=== PATIENT | female | born 1930 | race Caucasian/White ===

== ENCOUNTER 2017-10-29 19:37 | Inpatient (IN) | payer OTHER ==
[~2017-10-29] VITALS: Ht 165.1 cm; Wt 69.4 kg
[~2017-10-29 19:37] MED LIST: ASPIRIN EC81 M1 PO; CELEBREX; COLACE 100 MG100 MG PO; CRESTOR5 MG PO; DIFLUCAN PO; DIFLUCAN150 MG PO; ESTRACE0.5 MG; FLONASE; HYDROCODON-ACE1 EAC1; HYDROXYZINE HCL10 M1 PO; K-DUR 20 MEQ T20 MEQ PO; LAMISIL250 MG; LEXAPRO 10 MG T10 MG PO; MACROBID 100 M100 M1 PO; MINIPRIN81 MG; MOBIC15 MG PO; NEOSPORIN OINTM15 GM TP; NORCO 7.5-3251 EACH PO; PERCOCET 5-3251 EACH PO; PREMARIN0.3 MG PO; RESTORIL30 MG PO; TOPICORT 0.25%15 G1; ULTRAM 50MG TAB50 MG PO; VENLAFAXIN37.5 MG/1 PO; ZPAK PO
[2017-10-29 19:38] VITALS: BP 144/77
[2017-10-29 19:42] VITALS: BP 122/76
[2017-10-29 20:23] LABS: HEMOGLOBIN 12.4 gm/dL (12.0-15.0); MCH 30.2 pg (26.0-34.0); MCHC 32.7 g/dL (28.0-37.0); MCV 92.3 fL (80.0-100.0); MPV 8.9 fl. (7.2-11.1); NUCLEATED RBCS 0 /100WBC; PLATELET COUNT* 252 thou/uL (150-400); RBC 4.11 mil/uL (4.20-5.00); RDW-CV 13.3 % (10.5-14.5); WBC 11.3 thou/uL (4.0-11.0)
[2017-10-29 20:30] LABS: CREATININE 1.3 mg/dL (0.6-1.3); POTASSIUM 3.9 mmol/L (3.5-5.1)
[2017-10-29 20:38] LABS: ALBUMIN 3.6 g/dL (3.4-5.0); TOTAL BILIRUBIN 0.5 mg/dL (<0.1-1.0); TOTAL PROTEIN 7.4 g/dL (6.4-8.2); TROPONIN-I LEVEL 0.08 ng/mL (<0.06)
[2017-10-29 20:49] LABS: ABSOLUTE BASOPHILS 0.1 thou/uL (0.0-0.2); ABSOLUTE LYMPHOCYTES 1.1 thou/uL (0.8-5.3); ABSOLUTE MONOCYTES 0.1 thou/uL (0.0-1.2); ABSOLUTE NEUTROPHILS 9.9 thou/uL (1.6-8.1)
[2017-10-29 20:51] LABS: PLATELET ESTIMATE ADEQUATE
--- NOTE | 2017-10-29 21:23 | NUR ---
SON ARRIVED AT BEDSIDE MARISELA TILLMAN [phone] STATES SHE HAS A DO NOT RESECUTATE ORDER. NOTEED DOCUMENT DID ARRRIVE IN DOCUMENTS SENT BY SNF. ALSO SON IN LAW ARRIVED CARA BALES [phone]
[2017-10-29 21:59] LABS: URINE BILIRUBIN NEGATIVE (Negative); URINE BLOOD NEGATIVE (Negative); URINE CLARITY CLEAR; URINE COLOR YELLOW; URINE GLUCOSE-RANDOM NEGATIVE (Negative); URINE KETONES NEGATIVE (Negative); URINE LEUKOCYTES-REFLEX NEGATIVE (Negative); URINE NITRITE-REFLEX NEGATIVE (Negative); URINE PROTEIN NEGATIVE (Negative); URINE UROBILINOGEN 0.2 E.U./dl (0.2-1.0)
--- NOTE | 2017-10-29 22:00 | NUR ---
PER DR STEVENS PATIENT TO HAVE STRAIGHT CATHETER FOR URINE SPECIMAN.
--- NOTE | 2017-10-29 22:58 | NUR ---
CALLED TO MRI, [employer] REPOR[employer] PATIENT AGITATED ON MRI TABLE AND NOT ABLE TO LIE STILL. DR STEVENS NOTIFIED AND ORDERD ADDITIONAL ATIVAN. THIS RN ARRIVED AND GAVE ADDITIONAL ATIVAN TO PATIENT X 2. THIS RN STAYED WITH PATIENT IN MRI. PATIENT MAINTAINED ON MONITOR SAO2 MAINTAINED 99 % DURING PROCEDUREPATIENT RETURNED TO ED ROOM 18.
[2017-10-30] MEDS ORDERED: PLAVIX 75 MG TA75 M1 PO (00:17)
[2017-10-30] MEDS ORDERED: TOPROL XL25 MG PO (00:17)
[2017-10-30] MEDS ORDERED: KLOR-CON 1010 MEQ PO (00:18)
[2017-10-30] MEDS ORDERED: DIOVAN40 MG PO (00:19)
[2017-10-30] MEDS ORDERED: VITAMIN D400 UNIT PO (00:21)
[2017-10-30] MEDS ORDERED: TUMS PO (00:22)
[2017-10-30] MEDS ORDERED: ACETAMINOPHEN500 M1 PO (00:23)
[2017-10-30] MEDS ORDERED: LAXATIVE SUPPOS10 MG RECTAL (00:24)
[2017-10-30] MEDS ORDERED: DAIRY AID3000 UNIT PO (00:25)
[2017-10-30] MEDS ORDERED: NITROGLYCERIN0.4 MG SUBLING (00:26)
[2017-10-30] MEDS ORDERED: MILK OF MA2400 MG/10 PO (00:26)
[2017-10-30] MEDS ORDERED: TRIAMCINOLONE A80 G2 TOP (00:27)
[2017-10-30] MEDS ORDERED: VOLTAREN GEL 1100 G2 TOP (00:28)
[2017-10-30] MEDS ORDERED: PAXIL10 MG PO (00:28)
[2017-10-30 03:48] LABS: BE -0.8 mmol/L (-2 to +3); HCO3 22.7 mmol/L (22.0-26.0); PCO2 34.1 mmHg (35.0-45.0); pH 7.442 (7.340-7.450)
[2017-10-30 03:52] LABS: PO2 150.8 mmHg (75.0-100.0)
[2017-10-30 04:22] VITALS: BP 136/76
[2017-10-30 05:00] VITALS: BP 155/63
--- NOTE | 2017-10-30 05:00 | NUR ---
PT LETHARGIC AND RESTLESS IN BED. UNABLE TO RESPOND TO QUESTIONS, ADMISSION OBTAINED FROM [facility] DOCUMENTATION. PT ABLE TO MOVE ALL EXTREMITIES. NO VERBAL RESPONSE WHEN SPOKEN TOO, UNABLE TO FOLLOW COMMANDS. NIH OR SWALLOWING EVAL NOT OBTAINED. TELEMETRY APPLIED SHOWING SR. NO SKIN BREAKDOWN NOTED. MULTIPLE SMALL BRUISES NOTED. BRIEFS ON FOR INCONT. IVF INFUSING. BED ALARM ON. SEE ADMISSION ASSESSMENT AND HX.
[2017-10-30 05:03] LABS: CALCIUM 9.5 mg/dL (8.5-10.1); CREATININE 1.1 mg/dL (0.6-1.3); POTASSIUM 4.1 mmol/L (3.5-5.1)
[2017-10-30 05:05] LABS: ABSOLUTE BASOPHILS 0.1 thou/uL (0.0-0.2); ABSOLUTE LYMPHOCYTES 1.4 thou/uL (0.8-5.3); ABSOLUTE MONOCYTES 1.3 thou/uL (0.0-1.2); BASOPHILS 0.8 %; EOSINOPHILS 0.2 %; HEMATOCRIT 35.4 % (37.0-47.0); HEMOGLOBIN 12.1 gm/dL (12.0-15.0); LYMPHOCYTES 12.8 %; MCH 31.5 pg (26.0-34.0); MCHC 34.2 g/dL (28.0-37.0); MCV 92.2 fL (80.0-100.0); MONOCYTES 11.9 %; MPV 9.4 fl. (7.2-11.1); NUCLEATED RBCS 0 /100WBC; PLATELET COUNT* 256 thou/uL (150-400); POLYS 74.3 %; RBC 3.84 mil/uL (4.20-5.00); RDW-CV 13.3 % (10.5-14.5); WBC 10.8 thou/uL (4.0-11.0)
[2017-10-30 05:08] LABS: ALBUMIN 3.6 g/dL (3.4-5.0); TOTAL BILIRUBIN 0.7 mg/dL (<0.1-1.0); TOTAL PROTEIN 6.9 g/dL (6.4-8.2)
[2017-10-30] MEDS ORDERED: COZAAR 50 MG TA50 M2 PO (05:37)
[2017-10-30 07:53] VITALS: BP 128/82
[2017-10-30 08:50] LABS: CHOLESTEROL 116 mg/dL (<200); HDL CHOLESTEROL 55 mg/dL (>40); LDL CHOLESTEROL 47 mg/dL (<100); TC:HDL 2.1 Ratio (Not establshd); TRIGLYCERIDE 70 mg/dL (<150); VLDL 14 mg/dL (<40)
--- NOTE | 2017-10-30 08:59 | NUR ---
ASSUMED CARE OF PT THIS AM AROUND 714- MOUNTER FLUTES AND PICCOLOS IN PLACE ORDERED, TRACING SR- UPON ASSESSMENT PT NOTED TO BE RESTING IN BED, EYES CLOSED- RESPONDS TO TOUCH, BY MOVING/MOANING- NOTED TO ENRIQUE GROGGY AND SEDATED THIS AM- INCONTINENT OF BOWEL AND BLADDER- BED REST IN PLACE, Q 2HOUR TURNS IN PLACE INDICATED- LCTA, RESP EVEN AND UN-LABORED- VSS, O2 SAT 99% ON 2L VIA NC- ABDOMEN SOFT/ROUND/NON-TENDER, BS X4 QUADS-PT CURRNELTY NPO PENDING ST EVAL AND CARDILOGY CONSULT THIS AM R/T ELEVATED TROPS- OT/PT INTIATED- IV NOTED TO RIGHT AC INTACT, IVF INFUSSING PRESCIBED- EEG BEING COMPLETED THIS AM PRESCIBED- PT NOTED TO BE SLEEPING WELL, NO APPARENT PAIN NOTED- CALL LIGHT AND PERSONAL BELONGINGS WITH IN REACH- HOURLY ROUNDS IN PLACE R/T SAFETY/NEEDS- BED ALARM IN PLACE AND WORKING FOR PT SAFETY- ALL NEEDS MET AT THIS TIME-WCTM
[2017-10-30 09:44] LABS: SERUM ASSESSMENT Clear
--- NOTE | 2017-10-30 11:13 | EKG ---
[place] [address] ELECTROCARDIOGRAM REPORT Name: JASMIN TILLMAN Room: [address] ADM IN M.R.#: [id number] Admission: 10/30/17 Attend Phys: Myra Traore Discharge: Date of : 34 Report #: [id number] THIS REPORT FOR: //name// [facility] ED Test Date: 2017-10-29 Test Time: 19:50:26 Pat Name: JASMIN TILLMAN Department: Room: [facility] Gender: F Cot Assembler: Ben : 1930 Requested By: Sofi Stevens Order Number: [id number] MD: Seun Tyler Measurements Intervals [place] Rate: 99 P: 35 ND: 195 QRS: 22 QRSD: 89 T: 32 QT: 353 QTc: 453 Interpretive Statements Sinus rhythm Baseline wander in lead(s) II,III,aVF,V4 Compared to ECG 05/20/2015 16:18:18 No significant changes Electronically Signed On 10-30-2017 11:13:18 CDT by Seun Tyler [email or web address] <ELECTRONICALLY SIGNED> By: Seun Tyler MD, [facility] 10/30/17 1113 1950 1950 Seun Tyler MD, [facility] /EPI
[2017-10-30 11:23] VITALS: BP 134/62
--- NOTE | 2017-10-30 11:50 | NUR ---
Pt resides at [facility]. Pt is baseline A&O with some forgetfulness, per staff, Pt has early dementia. Pt is wc bound, but forgets to call for help and attempts to ambulate, which results in a fall. Supportive family that is involved in POC. Pt's son, [place], will be going out of the country tomorrow, primary contact once he is gone is Loan, granddaughter. [facility] is able to accept Pt back at [facility]. Following. [facility] [phone]
--- NOTE | 2017-10-30 14:25 | 2DMMODE ---
[place] [address] 2 D/M-MODE ECHOCARDIOGRAM Name: JASMIN TILLMAN Room: [address] ADM [facility] [id number] Admission: 10/30/17 Attend Phys: Vincent Patel Discharge: Date of : 34 Date of Service: 10/30/17 1425 Report #: [id number] THIS REPORT FOR: //name// APPROVED REPORT Study performed: 10/30/2017 10:34:20 EXAM: Comprehensive 2D, Doppler, and color-flow Echocardiogram Patient Location: In-Patient Room #: 209 Status: routine BSA: 1.81 HR: 67 bpm BP: 128/82 mmHg Rhythm: NSR Other Information Study Quality: Good Indications CVA/TIA Echo Enhancing Agent Indication: Rule out Shunt Agent(s) / Amount(s) Used: Agitated Saline 10 cc 2D Dimensions LVEF(%): 61.54 (>50%) IVSd: 10.25 (7-11mm) LVOT Diam: 21.10 (18-24mm) LVDd: 43.73 mm PWd: 8.09 (7-11mm) Ascending Ao: 30.42 (22-36mm) LVDs: 29.37 (25-40mm) Aortic Root: 38.22 mm Monique's LVEF: 61.54 % Volumes Left Atrial Volume (Systole) LA ESV Index: 19.00 mL/m2 Aortic Valve AoV Peak Van.: 1.17 m/s AO Peak Gr.: 5.47 mmHg LVOT Max P.59 mmHg AO Mean Gr.: 2.79 mmHg LVOT Mean P.31 mmHg LVOT Max V: 0.80 m/s AO V2 VTI: 26.31 cm LVOT Mean V: 0.52 m/[place] [address] 2 D/M-MODE ECHOCARDIOGRAM Name: JASMIN TILLMAN Room: [address] IN .R.#: [id number] Admission: 10/30/17 Attend Phys: Vincent Patel Discharge: Date of : 34 Date of Service: 10/30/17 1425 Report #: [id number] ROSI (VTI): 2.56 cm2 LVOT V1 VTI: 19.26 cm Mitral Valve E/A Ratio: 0.79 MV Decel. Time: 223.77 ms MV E Max Van.: 0.82 m/s MV PHT: 64.89 ms MVA (PHT): 3.39 cm2 TDI E/Lateral E': 9.11 E/Medial E': 13.67 Medial E' Van.: 0.06 m/s Lateral E' Van.: 0.09 m/s Pulmonary Valve PV Peak Van.: 0.64 m/s PV Peak Gr.: 1.65 mmHg Tricuspid Valve RAP Estimate: 5.00 mmHg TR Peak Gr.: 17.88 mmHg RVSP: 22.88 mmHg PA Pressure: 22.88 mmHg Left Ventricle The left ventricle is normal size. There is subtle distal septal and apical hypokinesis There is normal left ventricular wall thickness. Left ventricular systolic function is normal. The left ventricular ejection fraction is within the normal range. LVEF is 55-60%. Grade I - abnormal relaxation pattern. Right Ventricle The right ventricle is normal size. The right ventricular systolic function is normal. Atria The left atrium size is normal. PFO is noted. The right atrium size is normal. Aortic Valve Mild aortic valve sclerosis. Trace aortic regurgitation. There is no aortic valvular stenosis. Mitral Valve The mitral valve is normal in structure. Mild mitral regurgitation. No evidence of mitral valve stenosis[place] [address] 2 D/M-MODE ECHOCARDIOGRAM Name: JASMIN TILLMAN Room: [address] IN ..#: [id number] Admission: 10/30/17 Attend Phys: Vincent Patel Discharge: Date of : 34 Date of Service: 10/30/17 1425 Report #: [id number] The tricuspid valve is normal in structure. Mild tricuspid regurgitation. No pulmonary hypertension. Pulmonic Valve The pulmonary valve is normal in structure. Trace pulmonic regurgitation. Great Vessels The aortic root is normal in size. IVC is normal in size and collapses with >50% inspiration Pericardium There is no pericardial effusion. <Conclusion> The left ventricle is normal size. There is normal left ventricular wall thickness. Left ventricular systolic function is normal. The left ventricular ejection fraction is within the normal range. LVEF is 55-60%. Grade I - abnormal relaxation pattern. The right ventricle is normal size. The left atrium size is normal. Mild aortic valve sclerosis. Trace aortic regurgitation. There is no aortic valvular stenosis. The mitral valve is normal in structure. Mild mitral regurgitation. The tricuspid valve is normal in structure. IVC is normal in size and collapses with >50% inspiration There is no pericardial effusion. There is subtle distal septal and apical hypokinesis <ELECTRONICALLY SIGNED> By: Seun Tyler MD, FACC 10/30/17 1425 1425 1425 Seun Tyler MD, FACC /INF
[2017-10-30 15:38] VITALS: BP 135/69
--- NOTE | 2017-10-30 18:04 | NUR ---
PT CURRENLTY RESTING IN BED, EYES CLOSED- PT ARROUSABLE AT TIMES TO QUESTIONING WITH ONE WORD RESPONSES, NOTED TO BE RESPONDING TO FAMILY THIS SHIFT WHEN SPEAKING TO PT IN [facility] SOME THIS SHIFT- PT NOTED TO BECOME RESTLESS WITH INCONTINENT EPISODES THIS SHIFT, FAMILY R/T PT CHRONIC BACK PAIN AND REQUEST PT HAVE SOMEHTING FOR PAIN-ORDERS RECIVED FOR MOPHINE IV PRN- POST BEING CLEANED FOR INCONTINENT EPISODE AND REASSESSED FOR PAIN PT NOTED TO BE RESTING COMFORTABLY IN BED, WITH NO RESTLESS NOTED-NO NEED FOR PAIN MEDICATIONS AT THIS TIME- EEG COMPLETED THIS SHIFT PRESCRIBED, NO ABNORMALITIES NOTED- BLADDER SCAN COMPLETED THIS AM R/T LONG TIME WITH NO URINATION, PVR NOTED TO BE 499- NOTIFIED OF PVR WITH ORDERS NOTED FOR BLADDER SCAN Q 6 HOURS, OXYBUTYNIN 5 MG DAILY, AND TAMULOSIN DAILY AT HS- BLADDER SCAN AROUND 1421 NOTED TO BE 504, BUT PT NOTED TO VOID LARGE AMOUNT SOON AFTER WITH ANOTHER BLADDER SCAN PERFORMED ADN NOTED TO ENRIQUE 48CC- ECHO COMPLETED THIS SHIFT ORDERED, RESULTS SHOW 55-60% LVEF- ST THERAPY HERE TO ASSESS THIS SHIFT PRESCIBED- ST INDICATES PT TO BE OKAY WITH REGULAR DIET AND THIN LIQUIDS IF ALERT ENOUGH TO EAT- DIET ORDERED WITH DINNER AND OFFERED, PT UNABLE TO WAKE UP, AND VERBALY REFUSED TO EAT TO TECH THIS SHIFT-CALL LIGHT AND PERSONAL BELONGINGS WITH IN REACH- ALARM IN PLACE AND WORKING FOR PT SAFETY- ALL NEEDS MET AT THIS TIME-[facility]
[2017-10-30 20:00] VITALS: BP 142/77
--- NOTE | 2017-10-30 20:00 | NUR ---
RECEIVED REPORT AND ASSUMED CARE OF PT, ASSESSMENT COMPLETED. PT KEEPING EYES CLOSED, VERY RESTLESS AND NOT COOPERATING. O2 ON AT 2L/NC, PT IS MOUTH BREATHER. NO SKIN BREAKDOWN BUT DOES HAVE MULTIPLE BRUISING. TELEMETRY ON SHOWING SR. WILL CONT TO MONITOR AND ASSIST NEEDED.
[2017-10-31] VITALS: BP 133/94
[2017-10-31 04:15] VITALS: BP 146/68
--- NOTE | 2017-10-31 05:35 | NUR ---
RESTLESS ALL NIGHT. WILL NOT KEEP CLOTHING, OXYGEN OR FAMILY MANAGER ON. BED ALARM ON. INCONT OF URINE IN LG AMT WHEN SHE DOES GO. PT WILL NOT CARRY ON CONVERSATION, FOLLOW SIMPLE DIRECTIONS, OR COOPERATE. ASSESSMENT UNCHANGED. HS GOAL OF SAFETY ACHIEVED. HOURLY ROUNDING OBSERVED.
[2017-10-31 05:48] LABS: HEMATOCRIT 36.6 % (37.0-47.0); HEMOGLOBIN 11.9 gm/dL (12.0-15.0); MCH 30.6 pg (26.0-34.0); MCHC 32.5 g/dL (28.0-37.0); MCV 94.1 fL (80.0-100.0); MPV 9.2 fl. (7.2-11.1); RBC 3.89 mil/uL (4.20-5.00); RDW-CV 13.2 % (10.5-14.5)
--- NOTE | 2017-10-31 07:19 | CON ---
[facility] [address] [place] [address] CONSULTATION Name: PRIMOJASMIN Room: [address] IN M.R.#: [id number] Admission: 10/30/17 Attend Phys: Myra Traore Discharge: Date of : 34 Report #: [id number] THIS REPORT FOR: //name// CC: Aydin Patel TYPE OF REPORT: Cardiology consultation. INDICATION: TIA symptoms and elevated troponin. HISTORY OF PRESENT ILLNESS: The patient is a very pleasant lethargic 87-year old who was unable to provide adequate history. She was seen in the Emergency Room with altered mental status. Etiology not clear. MRA and MRI were fairly unremarkable of the head. In this setting, her troponin was 0.07 and 0.09. She is not complaining of chest pain. She does have a history of coronary artery bypass grafting remotely as well as myocardial infarction in 2000 per provided written history. A 12-lead EKG shows sinus rhythm without acute ST or T-wave abnormality. Echocardiogram is pending. Telemetry monitoring shows sinus rhythm with rare premature ventricular contractions. PAST MEDICAL HISTORY: 1. Coronary artery bypass grafting x 2. 2. Myocardial infarction in 2000. 3. Polymyositis. 4. Chronic back pain. 5. Spinal stenosis. 6. Hypertension. 7. Dementia. 8. Chronic low back pain. 9. Hyperlipidemia. 10. Depression. 11. History of UTIs. 12. Hysterectomy remotely. FAMILY HISTORY: Noncontributory. SOCIAL HISTORY: The patient resides in assisted care facility. She has dementia. Lifelong nonsmoker. No alcohol use. REVIEW OF SYSTEMS: Unobtainable. PHYSICAL EXAMINATION: VITAL SIGNS: Blood pressure 134/62 and pulse 67 and regular. GENERAL: This is an elderly female who does not appear to be in distress. She is somewhat lethargic but arousable. HEENT: Head is normocephalic and atraumatic. Mucous membranes are moist. NECK: Shows no obvious jugular venous distention. There [place] [address] CONSULTATION Name: JASMIN TILLMAN Room: [address] IN [facility].#: [id number] Admission: 10/30/17 Attend Phys: Myra Traore Discharge: Date of : 34 Report #: [id number] CHEST: Reveals clear lung pfeiffer. CARDIOVASCULAR: Reveals a regular rhythm with normal S1 and S2. I do not appreciate gallop or murmur. ABDOMEN: Reveals normal bowel sounds. The abdomen is soft and nontender. EXTREMITIES: Shows no edema. SKIN: Warm and dry. CARDIOLOGICAL DATA: A 12-lead EKG shows sinus rhythm with no significant ST or T-wave abnormalities. LABORATORY DATA: Labs are reviewed. Sodium 141, potassium 4.1, chloride 106, bicarbonate 29, BUN 11, creatinine 1.1 and serum glucose 119. LFTs within normal limits. Electrolytes within normal limits. Troponin 0.08, 0.07 and 0.09 sequentially. Total cholesterol 116, triglycerides 70, HDL 55 and LDL 47. White blood cell count 10.8; hemoglobin 12.1 and platelet count 256,000. RADIOLOGICAL DATA: Portable chest shows no acute cardiopulmonary process. MRI and MRA of the head showed no evidence of stroke. IMPRESSION AND RECOMMENDATIONS: 1. Minimally elevated troponin in patient with underlying coronary artery disease. I do not believe this represents acute coronary syndrome. Echocardiogram ordered and pending. No further treatment or evaluation at this time. 2. Questionable transient ischemic attack. MRA and MRI showed no acute stroke. We would continue with antiplatelet therapy in the form of an aspirin daily. 3. Hyperlipidemia, at goal on current regimen. 4. History of hypertension. Blood pressure adequately controlled. From a cardiac standpoint, I have nothing further to offer. <ELECTRONICALLY SIGNED> By: Burt Liriano MD, FACC 10/31/17 0719 1436 [id number] Liriano MD, FACC /nt
[2017-10-31 08:04] LABS: ALBUMIN 3.1 g/dL (3.4-5.0); CALCIUM 8.7 mg/dL (8.5-10.1); CREATININE 1.1 mg/dL (0.6-1.3); MAGNESIUM 1.6 mg/dL (1.8-2.4); TOTAL BILIRUBIN 0.7 mg/dL (<0.1-1.0); TOTAL PROTEIN 6.6 g/dL (6.4-8.2); TROPONIN-I LEVEL 0.16 ng/mL (<0.06)
[2017-10-31 09:00] VITALS: BP 132/66
[2017-10-31 11:30] VITALS: BP 107/52
--- NOTE | 2017-10-31 13:26 | NUR ---
ASSUMED PT CARE AROUND 0700 PT IS AWAKE AND CONFUSED PT IS NONAMBULATORY PT IS A FALL RISK BED ALARM IS ON, PT MOANS IN PAIN PAGED PHYSICIAN TO RESTART MEDICATIONS PHYSICIAN CONCERNED WITH SWALLOWING DID RESTART MEDICATIONS THIS NURSE DID A BEDSIDE SWALLOW PT PASSED GAVE PT MEDS ONE AT A TIME WITH SIPS OF WATER PT TOLERATED WITHOUT ISSUE, APPLIED VOLTERAN GEL TO BACK AND GAVE PT TYLENOL THIS AM WHICH HELPED PT WHO WAS ABLE TO SLEEP, PT IS RESTLESS PT IS A Q 2 TURN PT DOES NOT STAY TURNED MOVES AROUND, PT IS ST ON THE MONITOR, WILL CONTINUE TO MONITOR
[2017-10-31 20:00] VITALS: BP 142/75
[2017-11-01] VITALS: BP 127/58
--- NOTE | 2017-11-01 01:47 | NUR ---
ASSUMED PT CARE AT 19:15. PT IS AWAKE CONFUSED, FORGETFL, AGITATED, IMPULSIVE. ON HIGH RISK FOR FALL. SINUS TACHY ON THE MONITOR VITAL SIGNS ARE WITHIN NORMAL LIMIT. O2 SAT 97% ON 2 L NC. ASSESSMENT PERFORMED. PT IS INCONTENENT OF URINE. HAS BEEN RETAINING URINE THE PREVIOUS SHIFTS COMMUNICATED FROM SHIFT REPORT. BUT PT HAS BEEN URINATING NORMALLY. BED PAD CHANGED. Q2 TURN. VT HAS NOT SLEPT FOR THE NIGHT. IV NS RUNNING AT 130CC PER HOUR ORDERED. WILL CONTINUE TO MONITOR
[2017-11-01 04:43] VITALS: BP 100/56
--- NOTE | 2017-11-01 07:04 | NUR ---
BLADDER SCAN PT AT 06:30 AM. SHOWING 422CC OF URINE RETENTION. PAGE TELEPHONE RECORDER DR FOR STRAIGHT CATH ORDER.
[2017-11-01 09:30] VITALS: BP 130/63
[2017-11-01 11:36] VITALS: BP 106/52
[2017-11-01 16:13] VITALS: BP 102/48
--- NOTE | 2017-11-01 16:49 | NUR ---
ASSUMED PT CARE AT 0700 PT IS ALERT AND ORIENTED X 2 SELF AND PLAE PT ASKED THIS NURSE WHEN SHE CAME TO THE HOSPITAL, PT SHOWS NO SIGNS OF PAIN TYLENOL AND VOLTERAN GEL ARE THE ONLY PAIN MEDS GIVEN, PT IS A Q 2 TURN PT IS INCONTIENT PT HAD BATH, PT IS SR ON THE MONITOR, SPOKE WITH BOTH PT DAUGHTER AND DAUGHTER IN LAW REGARDING PT CARE AND STATUS, NEUROLOGIST CALLED DAUGHTER IN LAW AND MADE AWARE OF PT CONDITION, PT IS NON AMBULATORY WORKS WITH PHYSICAL THERAPY AND OT, WILL CONTINUE TO MONITOR
[2017-11-01 20:00] VITALS: BP 128/75
[2017-11-02] VITALS: BP 138/71
--- NOTE | 2017-11-02 02:51 | NUR ---
ASSUMED T CARE REPORT RECEIVED FROM NURSE. PT IS ALERT AWAKE ORIENTED X2 TO SELF AND PLACE. LESS CONFUSED THAN USUAL. CALM AND APPROPRIATE BEHAVIOR DISPLAYED. SHE COMPLAINS OF CONSTIPATION AND SUPPORSITORY TO BE APPLIED. 2 HOURS AFTER APPLICATION OF SUPPOSITORY PT HAD A LARGE BOWEL MVNT INCONTINENTLY. SHE IS SINUS RYTHM ON THE RADIO RIGGER. ON 2 L NC SATURATON ABOVE 95%. NO COMPLAIN OF PAIN. DAUGHTER IN LAW IS IN BEDROOM. ASSESSMENT WAS PERFORMED AND MEDICINE WERE ADMISNITERED ORDERED PT WAS EDUCATED ON FALL PRECAUTION, RE ORIENTED, AND EDUCATED ABOUT THE USE OF CALL LIGHT. SHE IS PRESENTLY SLEEPING IN BED . WILL CONTINUE TO MONITOR.
[2017-11-02 04:42] VITALS: BP 126/74
--- NOTE | 2017-11-02 06:01 | NUR ---
PT HAS HAD SEVERAL INCONTENCE OF URINE EPISODES DURING THE SHIFT. PT BLADDER SCNANED AT 0600AM. BLADDER SCAN SHOWS URINE RETENTION OF 265CC.
--- NOTE | 2017-11-02 06:55 | NUR ---
JUST NOW PT COMPLAINS OF PAIN IN THE UPPER RIGHT SHOULDER, TYLENOL ORDER PRN REQUESTED FROM DR BARRERA. AWAITING CALL BACK.
[2017-11-02 08:30] VITALS: BP 131/67
--- NOTE | 2017-11-02 11:42 | NUR ---
ASSUMED PT CARE AT 0700 PT IS ALERT AND ORIENTED X 2-3 PT IS MORE ALERT AND ORIENTED ABLE TO ASK APPROPRIATE QUESTIONS, PT C/O SHOULDER PAIN GAVE PT SCHEDULED TYLENOL AND APPLIED VOLTERAN GEL, PT IS UP WITH ASSIST X 2 PT IS UP TO COMMODE AND CHAIR DOES NOT FOLLOW COMMNANDS WELL, PT IS SR ON THE MONITOR, PT IS ABLE TO FEED SELF, WILL CONTINUE TO MONITOR
--- NOTE | 2017-11-02 12:02 | EEG ---
[address] [address] EEG STUDY REPORT Name: JASMIN TILLMAN Room: [address] IN M.R.#: [id number] Admission: 10/30/17 Attend Phys: Myra Traore Discharge: Date of : 34 Report #: [id number] THIS REPORT FOR: //name// CC: Aydin Patel DATE OF SERVICE: 10/30/2017 This patient is being evaluated for altered mental status. EEG was done by placing the electrodes by standard 10-20 system of electrode placement. Both referential and sequential montages were used for recording. Background activity in this patient's goes up to about 8-9 Hz and 40 microvolt. Photic stimulation is unremarkable. Activity fluctuates to some extent. No active epileptiform activity was noticed. IMPRESSION: This patient's EEG is slow and poorly formed. That will be consistent with encephalopathy, effect of psychotropic medication, etc. The patient is completely unresponsive as I understand, but the EEG still shows reasonably good background activity. <ELECTRONICALLY SIGNED> By: Serjio Monson MD 11/02/17 1202 1643 [id number] Monson MD /nt
[2017-11-02 12:30] VITALS: BP 89/65
[2017-11-02 17:04] VITALS: BP 143/66
[2017-11-02 20:00] VITALS: BP 150/67
--- NOTE | 2017-11-02 20:00 | NUR ---
RECEIVED REPORT AND ASSUMED CARE OF PT, ASSESSMENT COMPLETED. DGT-IN-LAW AT BEDSIDE. PT C/O INCREASED LT SHOULDER PAIN, D-I-L ASKING FOR SOMETHING DIFFERENT THEN TYLENOL. PT HAVING AUDIBLE WHEEZING, LUNG SOUNDS CLEAR, EXPLAINED IT WAS FROM HER BREATHING THROUGH HER NOSE SINCE SHE USALLY IS A MOUTH BREATHER. PT NOW ON RA WITH SAT OF 95%. PT IS ALERT AND ORIENTED TO PERSON AND PLACE. COOPERATIVE. TELEMETRY ON SHOWING SR. WILL CONT TO MONITOR AND ASSIST NEEDED.
--- NOTE | 2017-11-02 22:30 | NUR ---
PT TAKEN PER W/C TO SHOWER, HAIR WASHED ALONG WITH BATH. PT TRANSFERS WITH MAX ASSIST OF 2 PEOPLE, DOES NOT FOLLOW SIMPLE INSTRUCTIONS. VOIDING PER BSC WITHOUT DIFFICULTY. RETURNED TO BED WITH BED ALARM ON.
[2017-11-03 00:01] VITALS: BP 128/62
[2017-11-03 04:00] VITALS: BP 147/70
--- NOTE | 2017-11-03 06:46 | NUR ---
SLEPT WELL TONIGHT. ASSISTED WITH REPOSITIONING Q 2HR. NO CHANGE IN ASSESSMENT. TELEMETRY CONT TO SHOW SR. HS GOALS OF REST AND SAFETY ACHIEVED. HOURLY ROUNDING OBSERVED.
[2017-11-03 08:02] VITALS: BP 149/65
--- NOTE | 2017-11-03 09:22 | NUR ---
ASSUMED CARE OF PT THIS AM AROUND 0715- WOOD GRAINER IN PLACE ORDERED, TRACING SR- UPON ASSESSMENT PT NOTED TO BE RESTING IN BED- PT A&O X2 WITH NOTED FORGETFULLNESS- CONTINENT VS INCONTINENT OF BOWEL AND BLADDER-Q 2HOUR TURNS IN PLACE INDICATED; ASSIST X1-2 WITH TRANSFERS- LCTA, RESP EVEN AND UN-LABORED- VSS, O2 SAT 97% ON RA- ABDOMEN SOFT/ROUND/NON-TENDER, BS X4 QUADS- LAST BM REPORTED 11/02/17- IV NOTED TO RIGHT FA INTACT AND SL-[facility]IR PO INTAKE NOTED WITH BREAKFAST THIS AM- VOLTAREN GEL TO SHOULDERS THIS AM ALONG WITH SCHEDULED TYLENOL FOR REPORTED SHOULDER PAIN- CALL LIGHT AND PERSONAL BELONGINGS WITH IN REACH- BED ALARM IN PLACE AND WORKING FOR PT SAFETY- HOURLY ROUNDS IN PLACE R/T SAFETY/NEEDS- ALL NEEDS MET AT THIS TIME-WCTM
[2017-11-03] MEDS ORDERED: PAXIL10 MG PO (09:54)
[2017-11-03 10:51] VITALS: BP 149/65
[2017-11-03 12:04] VITALS: BP 148/70
--- NOTE | 2017-11-03 12:49 | NUR ---
ORDERS RECIEVED THIS SHIFT FOR OKAY TO D/C BACK TO [facility] PER THIS SHIFT- IV TO RIGHT FA D/C'D ALONG WITH BESSEMER BOTTOM MAKER PRIOR TO D/C- CM HERE TO UPDATE DAUGHTER IN LAW AND SET UP FOR TRANSPORTATION VIA [facility], PLANNED FOR 1330 TODAY CORPORATE RISK ANALYST TIME- REPORT CALLED TO TORRI, PHARMACEUTICAL SALES SPECIALIST MEDICAL OFFICER PSYCHIATRY AT 1150 AT [facility] WITH ALL QUESTIONS AND CONCERNS ADDRESSED PRIOR TO D/C- BELONGINGS PACKED AND ACCOUNTED FOR PER TECH- PT STEVIE IN ROOM EATING LUNCH- AWAITTING TRANSPORTATION AT THIS TIME-ALL NEEDS ARE MET AT THIS TIME-WCTM
--- NOTE | 2017-11-03 13:42 | NUR ---
[facility] HERE TO COAL CHUTE WORKER PT AT 1343- PT TRANSFERED WITH BELONGINGS PER [facility] WITH NOTED D/C TIME OF 1344- PAPER WORK PROVIDED TO TRANSPORTATION AT TIME OF D/C NO PROBLEMS TO NOTE
== END 2017-11-03 13:40 | disposition home or self-care (01) | DRG 91 ==
LOC: M.ERS 19:37 → M.TBA-ER 10-30 03:37 → M.2W 10-30 03:37
PROVIDERS: Emergency Medicine; Internal Medicine; ADMIT Internal Medicine
DX: G92 Toxic encephalopathy (principal); J96.00 Acute respiratory failure, unspecified whether with hypoxia or hypercapnia; R65.11 Systemic inflammatory response syndrome (SIRS) of non-infectious origin with acute organ dysfunction; G45.9 Transient cerebral ischemic attack, unspecified; T42.4X5A Adverse effect of benzodiazepines, initial encounter; I25.10 Atherosclerotic heart disease of native coronary artery without angina pectoris; F03.90 Unspecified dementia, unspecified severity, without behavioral disturbance, psychotic disturbance, mood disturbance, and anxiety; M48.00 Spinal stenosis, site unspecified; I25.2 Old myocardial infarction; G89.29 Other chronic pain; M54.5 Low back pain; E78.5 Hyperlipidemia, unspecified; F32.9 Major depressive disorder, single episode, unspecified; G47.00 Insomnia, unspecified; I10 Essential (primary) hypertension; Z79.899 Other long term (current) drug therapy; Z88.1 Allergy status to other antibiotic agents; Z88.0 Allergy status to penicillin; Z88.2 Allergy status to sulfonamides; Z95.1 Presence of aortocoronary bypass graft; Y92.89 Other specified places as the place of occurrence of the external cause; Z79.82 Long term (current) use of aspirin; Z90.710 Acquired absence of both cervix and uterus; Z86.12 Personal history of poliomyelitis; Z82.49 Family history of ischemic heart disease and other diseases of the circulatory system; Z83.3 Family history of diabetes mellitus; Z80.9 Family history of malignant neoplasm, unspecified